=== PATIENT | male | born 1945 | race Caucasian/White ===

== ENCOUNTER → 2016-06-06 | Outpatient (CLI) | payer OTHER, BC | LOC: FIMAGING 08:04 | PROVIDERS: ATTEND Specialist | DX: N20.0 Calculus of kidney (principal); R93.5 Abnormal findings on diagnostic imaging of other abdominal regions, including retroperitoneum ==

== ENCOUNTER → 2016-06-13 | Outpatient (CLI) | payer OTHER, BC | LOC: FIMAGING 10:18 | PROVIDERS: ATTEND Specialist | DX: N20.0 Calculus of kidney (principal); K80.20 Calculus of gallbladder without cholecystitis without obstruction ==

== ENCOUNTER 2016-10-09 18:17 | Emergency (ER) | payer OTHER, BC ==
--- NOTE | 2016-10-09 19:27 | EDPHY ---
H & P Time Seen by Provider: 10/09/16 19:10 HPI/ROS: CHIEF COMPLAINT: Unable to urinate HISTORY OF PRESENT ILLNESS: 71-year-old male presents with inability to urinate. This morning he had lithotripsy in [place]. He has not been able to urinate since he arrived home. He has had gradually increasing abdominal pain and distention. The pain is now moderate. No prior history of urinary retention. No fever, vomiting, or other associated symptoms. REVIEW OF SYSTEMS: Constitutional: No fever, no chills Eyes: No visual changes ENT: No sore throat Respiratory: No cough, no shortness of breath Cardiac: No chest pain Gastrointestinal: No nausea, no vomiting Genitourinary: No hematuria, no dysuria Musculoskeletal: No leg pain or swelling Skin: No rash Neurological: No headache Psychiatric: No depression Past Medical/Surgical History: 1. Sick sinus syndrome - pacemaker 2. Lithotripsy 3. Kidney stones Social History: . Lives in [place]. Smoking Status: Former smoker Physical Exam: General Appearance: Alert, Appears uncomfortable Eyes: Pupils equal and round, no conjunctival pallor ENT, Mouth: Mucous membranes moist Neck: Normal inspection Respiratory: Lungs are clear to auscultation Cardiovascular: Regular rate and rhythm Gastrointestinal: Infraumbilical tenderness and distention Neurological: A&O, nonfocal, normal gait Skin: Warm and dry, no rash Extremities: Nontender, no pedal edema Psychiatric: Mood and affect normal Constitutional: Initial Vital Signs Temperature (C) 36.4 C 10/09/16 18:22 Heart Rate 84 10/09/16 18:22 Respiratory Rate 16 10/09/16 18:22 Blood Pressure 106/80 10/09/16 18:22 O2 Sat (%) 96 10/09/16 18:22 O2 Delivery Mode Room Air Allergies/Adverse Reactions: No Known Allergies Allergy (Unverified 09/14/15 12:59) Medical Decision Making ED Course/Re-evaluation: 71 year old male presets with urinary retention secondary to lithotripsy this morning. 19:51 Valencia placed. Reassessed patient. He is feeling much better. Plan to discharge home in good condition. He will follow up with urology in 2-3 days, and keep his Valencia placed until that time. Care and return precautions discussed. The patient is comfortable with this plan. Differential Diagnosis: The differential diagnosis for the patient's urinary retention included but was not limited to postprocedural urinary retention, medication side effect, neurologic causes, outflow obstruction including prostatic hypertrophy, and infection. Departure - Departure Disposition: Home, Routine, Self-Care Clinical Impression: Postprocedural urinary retention Condition: Good Instructions: Urinary Retention in Men (ED), Valencia Catheter Placement and Care (ED) Additional Instructions: 1. Follow up with urology in the next 2-3 days. 2. Keep your Valencia catheter in place until you follow up with urology. Care instructions attached. 3. Return to the Emergency Department for recurrent urinary retention, abdominal pain, blood in your urine, or other worsening of condition. Referrals: Duane Hwang MD [Primary Care Provider] - As per Instructions Jaquelin Oneal MD [Medical Doctor] - As per Instructions Report Scribed for: Kathryn Steele Report Scribed by: Maryanne Cramer Date of Report: 10/09/16 Time of Report: 19:26 Physician Review and Approval Statement: 10/09/16 19:26 Portions of this note were transcribed by a medical superintendent. I personally performed a history, physical exam, medical decision making, and confirmed accuracy of information the transcribed note.
[2016-10-09 20:29] VITALS: BP 121/70; PULSE 63; RESP 20; TEMP 98.2; O2SAT 95
== END 2016-10-09 20:28 | disposition home or self-care (01) ==
PROC: 0T9B70Z Drainage of Bladder with Drainage Device, Via Natural or Artificial Opening (ICD-10-PCS; principal; 2016-10-09)
DX: N99.89 Other postprocedural complications and disorders of genitourinary system (principal); Z87.891 Personal history of nicotine dependence; Z95.0 Presence of cardiac pacemaker

== ENCOUNTER → 2016-11-26 | Outpatient (CLI) | payer OTHER, BC | LOC: FCPNEURO 20:00 | PROVIDERS: ATTEND Psychiatry & Neurology Sleep Medicine | DX: G47.33 Obstructive sleep apnea (adult) (pediatric) (principal) ==

== ENCOUNTER → 2016-11-28 | Outpatient (CLI) | payer OTHER, BC | LOC: FIMAGING 13:30 | PROVIDERS: ATTEND Specialist | DX: N20.0 Calculus of kidney (principal) ==

== ENCOUNTER → 2017-03-02 | Outpatient (CLI) | payer OTHER, BC | LOC: FIMAGING 15:19 | PROVIDERS: ATTEND Emergency Medicine | DX: J40 Bronchitis, not specified as acute or chronic (principal) | CPT/HCPCS: 71020; G0463; 87804-QW-PO ==

== ENCOUNTER → 2017-06-06 | Outpatient (CLI) | payer OTHER, BC | LOC: FIMAGING 13:49 | PROVIDERS: ATTEND Specialist | DX: N20.0 Calculus of kidney (principal) ==

== ENCOUNTER → 2017-11-21 | Outpatient (CLI) | payer OTHER, BC | LOC: FIMAGING 08:39 | PROVIDERS: ATTEND Internal Medicine | DX: R10.816 Epigastric abdominal tenderness (principal) ==

== ENCOUNTER → 2018-07-08 | Outpatient (CLI) | payer OTHER, BC | LOC: FLAB 11:41 | PROVIDERS: ATTEND Specialist | DX: N20.0 Calculus of kidney (principal) ==